=== PATIENT | female | born 1980 | race Hispanic/Latino ===

== ENCOUNTER 2017-07-29 11:19 | Emergency (ER) | payer MEDICAID | END 2017-07-29 11:51 | disposition home or self-care (01) | LOC: EDH 11:19 | DX: O26.892 Other specified pregnancy related conditions, second trimester (principal); Z20.828 Contact with and (suspected) exposure to other viral communicable diseases; Z79.899 Other long term (current) drug therapy; Z3A.22 22 weeks gestation of pregnancy ==